=== PATIENT | male | born 1935 | race Caucasian/White ===

== ENCOUNTER 2017-08-21 11:30 | Inpatient (IN) | payer MEDICARE, OTHER ==
[~2017-08-21] VITALS: Ht 182.9 cm; Wt 82.1 kg
[~2017-08-21 11:30] MED LIST: CHOL2000 PO; DOXY100C2 PO; LATA2.5D3 EACHEYE; PILO15DR24 EACHEYE; SIMV20TA3 PO; TAMS0.4C2 PO; TEST2.5G TP; UBID100C24 PO; VITA400C43 PO
[2017-08-21] MEDS ORDERED: LATA2.5D2 EACHEYE (13:10)
[2017-08-21 13:49] LABS: HEMATOCRIT 44.8 % (39.2-51.8); HEMOGLOBIN 15.4 g/dL (13.7-18.0); WHITE BLOOD COUNT 4.4 x10^3/uL (3.4-10)
[2017-08-21 14:03] LABS: BLOOD UREA NITROGEN 19 mg/dL (7-18)
[2017-08-21 14:07] LABS: ASPARTATE AMINO TRANSFERASE 18 U/L (15-37)
[2017-08-22] MEDS ORDERED: PLEASE ENTER ALLERGIES MC SCH ×2 (04:30)
[2017-08-22 05:18] VITALS: BP_SYST 154; BP_SYST 158; BP_DIAS 68; BP_DIAS 78
[2017-08-22] MEDS ORDERED: INSULIN ASPART 100 UNITS/ML, PEN SQ-INSULIN SCH (06:00)
[2017-08-22] MEDS ORDERED: DO NOT GIVE MC SCH (06:00)
[2017-08-22] MEDS ORDERED: CHLORHEXIDINE MOUTHWASH 15 ML UDC MM SCH (06:00)
[2017-08-22] MEDS: MUPIROCIN OINT 2%, 22GM TP SCH ×2 (06:10→21:00)
[2017-08-22] MEDS ORDERED: FENTANYL PF 1000 MCG/20ML ONE (06:23)
[2017-08-22] MEDS ORDERED: MIDAZOLAM 10MG/2 ML ONE (06:24)
[2017-08-22] MEDS ORDERED: EPINEPHRINE 1 MG/ML, 1ML ONE (06:26)
[2017-08-22] MEDS ORDERED: PHENYLEPHRINE 10 MG/ML ONE (06:26)
[2017-08-22] MEDS ORDERED: CALCIUM CHLORIDE 10%, 10ML SYR ONE (06:26)
[2017-08-22] MEDS ORDERED: TRANEXAMIC ACID 100 MG/ML, 10ML ONE ×2 (06:27→13:11)
[2017-08-22] MEDS ORDERED: PROPOFOL 10 MG/ML, 20ML ONE (06:35)
[2017-08-22] MEDS ORDERED: ROCURONIUM 10 MG/ML,10ML ONE (06:35)
[2017-08-22 06:46] VITALS: BP 134/68
[2017-08-22] MEDS ORDERED: REGULAR INSULIN 62.5 UNITS in SODIUM CHLORIDE 0.9% 249.375 ML IV PRN ×2 (07:30→09:30)
[2017-08-22] MEDS ORDERED: VANCOMYCIN 1,200 MG in SODIUM CHLORIDE 0.9% 250 ML IV PRN (07:30)
[2017-08-22] MEDS ORDERED: PHENYLEPHRINE 10 MG in SODIUM CHLORIDE 0.9% 249 ML IV PRN ×2 (07:30→09:30)
[2017-08-22] MEDS ORDERED: ALBUMIN HUMAN 5% 500 ML IV ONE (07:30)
[2017-08-22] MEDS ORDERED: CEFUROXIME 1.5 GM in SODIUM CHLORIDE 0.9% 50 ML IVPB PRN (07:30)
[2017-08-22] MEDS ORDERED: POTASSIUM CHLORIDE 80 MEQ, SODIUM BICARBONATE 8.4% 10 MEQ, MAGNESIUM SULFATE 0.5 GM, LI... IV PRN (07:30)
[2017-08-22] MEDS ORDERED: DEXMEDETOMIDINE 200 MCG in SODIUM CHLORIDE 0.9% 48 ML IV SCH (07:30)
[2017-08-22] MEDS ORDERED: EPINEPHRINE 2 MG in SODIUM CHLORIDE 0.9% 248 ML IV SCH (07:30)
[2017-08-22] MEDS ORDERED: MANNITOL PMX 20% 500 ML IVPB PRN (07:30)
[2017-08-22] MEDS ORDERED: PROTAMINE SULFATE 10 MG/ML, 25ML ONE ×2 (08:49)
[2017-08-22] MEDS: DOCUSATE 100 MG CAPSULE PO SCH ×2 (09:00→21:40)
[2017-08-22] MEDS: SODIUM CHLORIDE FLUSH 10ML SYR IVF SCH ×3 (09:00→21:43)
[2017-08-22] MEDS ORDERED: DEXTROSE 4 GM TAB.CHEW PO PRN (09:30)
[2017-08-22] MEDS ORDERED: NITROGLYCERIN/D5W PMX 240 ML IV PRN (09:30)
[2017-08-22] MEDS ORDERED: EPINEPHRINE 2 MG in SODIUM CHLORIDE 0.9% 248 ML IV PRN (09:30)
[2017-08-22] MEDS ORDERED: ACETAMINOPHEN 650 MG SUPP PR PRN (09:30)
[2017-08-22] MEDS: CHLORHEXIDINE MOUTHWASH 15 ML UDC MM SCH ×2 (09:30→21:44)
[2017-08-22] MEDS ORDERED: VASOPRESSIN 50 UNIT in SODIUM CHLORIDE 0.9% 250 ML IV PRN (09:30)
[2017-08-22] MEDS ORDERED: BISACODYL 5 MG EC TABLET PO PRN (09:30)
[2017-08-22] MEDS ORDERED: ONDANSETRON 2MG/ML, 2ML IVPush PRN (09:30)
[2017-08-22] MEDS ORDERED: DEXTROSE 50%, 50ML SYRINGE IVPush PRN (09:30)
[2017-08-22] MEDS ORDERED: SODIUM CHLORIDE 0.9% 1,000 ML IV PRN (09:30)
[2017-08-22] MEDS ORDERED: BISACODYL 10 MG SUPP PR PRN (09:30)
[2017-08-22] MEDS ORDERED: ACETAMINOPHEN 325 MG TABLET PO PRN (09:30)
[2017-08-22] MEDS ORDERED: morphine SULFATE 10 MG/ML, 1ML IVPush PRN (09:30)
[2017-08-22] MEDS ORDERED: HYDROcodone/APAP 5/325 TABLET PO PRN (09:30)
[2017-08-22] MEDS ORDERED: MIDAZOLAM 1 MG/ML, 5ML IVPush PRN (09:30)
[2017-08-22] MEDS ORDERED: SODIUM BICARB 8.4%, 50ML SYRINGE IV PRN (09:30)
[2017-08-22] MEDS ORDERED: INSULIN REGULAR 100 UNITS/ML, 3ML VIAL IVPush PRN (09:30)
[2017-08-22] MEDS ORDERED: VANCOMYCIN 1,000 MG in SODIUM CHLORIDE 0.9% 250 ML IVPB SCH (09:30)
[2017-08-22] MEDS ORDERED: PROCHLORPERAZINE 5 MG/ML, 2ML IVPush PRN (09:30)
[2017-08-22] MEDS: KSCALE TO 4.5 IV SCH ×3 (09:30→21:30)
[2017-08-22] MEDS ORDERED: GLUCAGON 1 MG IM PRN (09:30)
[2017-08-22] MEDS ORDERED: DOBUTAMINE 250 MG in SODIUM CHLORIDE 0.9% 230 ML IV PRN (09:30)
[2017-08-22] MEDS ORDERED: DEXMEDETOMIDINE 200 MCG in SODIUM CHLORIDE 0.9% 48 ML IV PRN (09:30)
[2017-08-22 10:01] LABS: ABG COLLECTION SITE ARTERIAL LINE; FIO2 50 %
[2017-08-22] MEDS: LACTATED RINGERS 1,000 ML IV PRN ×3 (10:26→13:03)
[2017-08-22] MEDS: MAGNESIUM SULFATE 1 GM in SODIUM CHLORIDE 0.9% 50 ML IVPB SCH (10:44)
[2017-08-22] MEDS ORDERED: POTASSIUM CHLORIDE PMX 100 ML IV ONE (11:00)
[2017-08-22] MEDS: INSULIN ASPART 100 UNITS/ML, PEN SQ-INSULIN SCH ×3 (11:00→21:27)
[2017-08-22] MEDS ORDERED: SODIUM BICARB 8.4%, 50ML SYRINGE ONE (13:10)
[2017-08-22] MEDS ORDERED: methylPREDNISolone SOD SUCC 125 MG/2 ML ONE (13:10)
[2017-08-22] MEDS ORDERED: LIDOCAINE 2% 100MG/5ML SYRINGE ONE (13:10)
[2017-08-22] MEDS ORDERED: ALBUMIN HUMAN 25% 50 ML ONE (13:11)
[2017-08-22] MEDS ORDERED: HEPARIN 1,000 UNITS/ML, 30ML ONE (13:11)
[2017-08-22] MEDS ORDERED: FENTANYL PF 100 MCG/2ML ONE (14:27)
[2017-08-22] MEDS ORDERED: FENTANYL PF 100 MCG/2ML IVPush PRN (14:30)
[2017-08-22 16:40] LABS: HEMATOCRIT 34.3 % (39.2-51.8); HEMOGLOBIN 11.9 g/dL (13.7-18.0)
[2017-08-22] MEDS: CEFUROXIME 1.5 GM in SODIUM CHLORIDE 0.9% 50 ML IVPB SCH (18:30)
[2017-08-22] MEDS: VANCOMYCIN PMX 1GM/200ML 200 ML IV SCH (20:09)
[2017-08-22] MEDS ORDERED: LATANOPROST OPHTH 0.005%, 2.5ML EACHEYE SCH (21:00)
[2017-08-22 21:15] LABS: HEMATOCRIT 36.4 % (39.2-51.8); HEMOGLOBIN 12.3 g/dL (13.7-18.0)
[2017-08-22] MEDS: MUPIROCIN OINT 2%, 22GM NAS SCH (21:42)
[2017-08-22] MEDS ORDERED: OXYcodone IR 5MG TABLET ONE ×2 (21:47→23:50)
[2017-08-22] MEDS: OXYcodone IR 30 MG TABLET PO PRN ×2 (21:49→23:53)
[2017-08-23] MEDS: INSULIN ASPART 100 UNITS/ML, PEN SQ-INSULIN SCH ×6 (01:15→23:28)
[2017-08-23] MEDS ORDERED: OXYcodone IR 5MG TABLET ONE ×2 (02:27→06:05)
[2017-08-23] MEDS: OXYcodone IR 30 MG TABLET PO PRN ×2 (02:28→06:07)
[2017-08-23] MEDS: KSCALE TO 4.5 IV SCH (03:30)
[2017-08-23 05:57] LABS: ABG COLLECTION SITE NOT DOCUMENTED
[2017-08-23 06:06] LABS: BLOOD UREA NITROGEN 24 mg/dL (7-18)
[2017-08-23 06:09] LABS: HEMOGLOBIN 11.6 g/dL (13.7-18.0); WHITE BLOOD COUNT 8.5 x10^3/uL (3.4-10)
[2017-08-23] MEDS: CEFUROXIME 1.5 GM in SODIUM CHLORIDE 0.9% 50 ML IVPB SCH (06:09)
[2017-08-23 06:30] LABS: DIFF TOTAL CELLS COUNTED 100 CELL DIFF
[2017-08-23] MEDS ORDERED: POTASSIUM CHLORIDE PMX 100 ML IV ONE (06:30)
[2017-08-23 06:34] LABS: VERIFY COUNTS? YES
[2017-08-23] MEDS: VANCOMYCIN PMX 1GM/200ML 200 ML IV SCH (06:57)
[2017-08-23] MEDS: MUPIROCIN OINT 2%, 22GM NAS SCH ×2 (08:39→21:00)
[2017-08-23] MEDS: SODIUM CHLORIDE FLUSH 10ML SYR IVF SCH ×5 (08:41→21:14)
[2017-08-23] MEDS: CLOPIDOGREL 75 MG TABLET PO SCH (08:41)
[2017-08-23] MEDS: CHLORHEXIDINE MOUTHWASH 15 ML UDC MM SCH ×2 (08:42→21:10)
[2017-08-23] MEDS: ASPIRIN 81 MG TABLET EC PO SCH (08:42)
[2017-08-23] MEDS: DOCUSATE 100 MG CAPSULE PO SCH ×2 (08:42→21:10)
[2017-08-23] MEDS: LATANOPROST OPHTH 0.005%, 2.5ML EACHEYE SCH ×2 (08:43→21:00)
[2017-08-23] MEDS ORDERED: WARFARIN BIOPROSTHETIC VALVE PROTOCOL 2-3 XX SCH (09:00)
[2017-08-23 09:24] LABS: HEMATOCRIT 34.9 % (39.2-51.8); HEMOGLOBIN 11.8 g/dL (13.7-18.0)
[2017-08-23] MEDS ORDERED: TAMSULOSIN 0.4 MG CAP.ER.24H PO SCH ×2 (09:45→21:00)
[2017-08-23] MEDS: MAGNESIUM SULFATE 1 GM in SODIUM CHLORIDE 0.9% 50 ML IVPB SCH (10:07)
[2017-08-23] MEDS: POTASSIUM CHLORIDE 10 MEQ TABLET.ER PO SCH ×2 (12:13→17:29)
[2017-08-23] MEDS: FUROSEMIDE 20 MG/2 ML IV SCH ×2 (12:13→17:29)
[2017-08-23] MEDS: MAGNESIUM HYDROXIDE 8%, 30ML UDC PO PRN (12:13)
[2017-08-23 20:28] VITALS: BP 123/82
[2017-08-23] MEDS: HYDROcodone/APAP 10/325 MG TABLET PO PRN (21:10)
[2017-08-23] MEDS ORDERED: AMIODARONE 150 MG in DEXTROSE 5% 100 ML IV ONE (23:00)
[2017-08-23] MEDS ORDERED: FILTER 0.22 MICRON IV PRN (23:00)
[2017-08-23] MEDS: AMIODARONE 900 MG in DEXTROSE 5% 482 ML IV PRN (23:29)
[2017-08-24] VITALS (9 sets, daily range): BP systolic 96–130; BP diastolic 45–74
[2017-08-24] MEDS: HYDROcodone/APAP 10/325 MG TABLET PO PRN ×4 (01:26→20:54)
[2017-08-24] MEDS: INSULIN ASPART 100 UNITS/ML, PEN SQ-INSULIN SCH ×4 (03:39→21:19)
[2017-08-24 05:33] LABS: WHITE BLOOD COUNT 6.9 x10^3/uL (3.4-10)
[2017-08-24 05:42] LABS: BLOOD UREA NITROGEN 32 mg/dL (7-18)
[2017-08-24] MEDS: POTASSIUM CHLORIDE 10 MEQ TABLET.ER PO SCH ×2 (08:00→17:57)
[2017-08-24] MEDS: MUPIROCIN OINT 2%, 22GM NAS SCH ×2 (09:00→20:53)
[2017-08-24] MEDS: CLOPIDOGREL 75 MG TABLET PO SCH (09:00)
[2017-08-24] MEDS: ASPIRIN 81 MG TABLET EC PO SCH (09:00)
[2017-08-24] MEDS: LATANOPROST OPHTH 0.005%, 2.5ML EACHEYE SCH ×2 (09:00→20:52)
[2017-08-24] MEDS: SODIUM CHLORIDE FLUSH 10ML SYR IVF SCH ×6 (09:00→20:53)
[2017-08-24] MEDS: FUROSEMIDE 20 MG/2 ML IV SCH ×2 (09:12→17:57)
[2017-08-24] MEDS: DOCUSATE 100 MG CAPSULE PO SCH ×2 (09:12→20:54)
[2017-08-24] MEDS: TAMSULOSIN 0.4 MG CAP.ER.24H PO SCH ×2 (10:15→20:54)
[2017-08-24] MEDS: MAGNESIUM SULFATE 1 GM in SODIUM CHLORIDE 0.9% 50 ML IVPB SCH (10:38)
[2017-08-24 13:47] LABS: HEMATOCRIT 34.1 % (39.2-51.8); HEMOGLOBIN 11.9 g/dL (13.7-18.0); WHITE BLOOD COUNT 8.4 x10^3/uL (3.4-10)
[2017-08-24] MEDS: MAGNESIUM HYDROXIDE 8%, 30ML UDC PO PRN (13:52)
[2017-08-24] MEDS: AMIODARONE 900 MG in DEXTROSE 5% 482 ML IV PRN (22:39)
[2017-08-25 02:48] VITALS: BP 112/66
[2017-08-25 05:08] LABS: BLOOD UREA NITROGEN 36 mg/dL (7-18)
[2017-08-25] MEDS: INSULIN ASPART 100 UNITS/ML, PEN SQ-INSULIN SCH ×4 (07:00→21:00)
[2017-08-25 07:55] VITALS: BP 109/61
[2017-08-25] MEDS: MAGNESIUM HYDROXIDE 8%, 30ML UDC PO PRN (08:33)
[2017-08-25] MEDS: ASPIRIN 81 MG TABLET EC PO SCH (08:34)
[2017-08-25] MEDS: TAMSULOSIN 0.4 MG CAP.ER.24H PO SCH ×2 (08:34→20:59)
[2017-08-25] MEDS: POTASSIUM CHLORIDE 10 MEQ TABLET.ER PO SCH ×2 (08:34→18:05)
[2017-08-25] MEDS: FUROSEMIDE 20 MG/2 ML IV SCH ×2 (08:34→18:05)
[2017-08-25] MEDS: DOCUSATE 100 MG CAPSULE PO SCH ×2 (08:35→20:59)
[2017-08-25] MEDS: LATANOPROST OPHTH 0.005%, 2.5ML EACHEYE SCH ×2 (08:35→20:59)
[2017-08-25] MEDS: SODIUM CHLORIDE FLUSH 10ML SYR IVF SCH ×6 (08:35→21:00)
[2017-08-25] MEDS: CLOPIDOGREL 75 MG TABLET PO SCH (08:35)
[2017-08-25] MEDS: HYDROcodone/APAP 10/325 MG TABLET PO PRN ×2 (08:35→21:01)
[2017-08-25] MEDS: MUPIROCIN OINT 2%, 22GM NAS SCH ×2 (08:36→20:59)
[2017-08-25 12:51] VITALS: BP 107/57
[2017-08-25 20:59] VITALS: BP 107/69
[2017-08-25] MEDS: AMIODARONE 200 MG TABLET PO SCH (20:59)
[2017-08-26 02:59] VITALS: BP 107/57
[2017-08-26 06:01] LABS: BLOOD UREA NITROGEN 36 mg/dL (7-18)
[2017-08-26] MEDS: INSULIN ASPART 100 UNITS/ML, PEN SQ-INSULIN SCH (07:00)
[2017-08-26 08:35] VITALS: BP 129/65
[2017-08-26] MEDS: AMIODARONE 200 MG TABLET PO SCH ×2 (08:40→19:50)
[2017-08-26] MEDS: DOCUSATE 100 MG CAPSULE PO SCH ×2 (08:40→19:50)
[2017-08-26] MEDS: POTASSIUM CHLORIDE 10 MEQ TABLET.ER PO SCH ×2 (08:40→16:44)
[2017-08-26] MEDS: TAMSULOSIN 0.4 MG CAP.ER.24H PO SCH ×2 (08:40→19:49)
[2017-08-26] MEDS: FUROSEMIDE 20 MG/2 ML IV SCH ×2 (08:41→16:44)
[2017-08-26] MEDS: ASPIRIN 81 MG TABLET EC PO SCH (08:41)
[2017-08-26] MEDS: MAGNESIUM HYDROXIDE 8%, 30ML UDC PO PRN (08:41)
[2017-08-26] MEDS: CLOPIDOGREL 75 MG TABLET PO SCH (08:41)
[2017-08-26] MEDS: SODIUM CHLORIDE FLUSH 10ML SYR IVF SCH ×6 (08:42→19:50)
[2017-08-26] MEDS: MUPIROCIN OINT 2%, 22GM NAS SCH ×2 (08:42→19:51)
[2017-08-26 12:45] VITALS: BP 106/50
[2017-08-26] MEDS: HYDROcodone/APAP 10/325 MG TABLET PO PRN (19:50)
[2017-08-26 20:40] VITALS: BP 138/66
[2017-08-26] MEDS ORDERED: LATANOPROST OPHTH 0.005%, 2.5ML EACHEYE SCH (21:00)
[2017-08-27 02:44] VITALS: BP 101/57
[2017-08-27 05:53] LABS: HEMATOCRIT 27.8 % (39.2-51.8); HEMOGLOBIN 9.8 g/dL (13.7-18.0); WHITE BLOOD COUNT 4.2 x10^3/uL (3.4-10)
[2017-08-27 06:05] LABS: BLOOD UREA NITROGEN 31 mg/dL (7-18)
[2017-08-27 07:49] VITALS: BP 109/62
[2017-08-27] MEDS: TAMSULOSIN 0.4 MG CAP.ER.24H PO SCH (08:46)
[2017-08-27] MEDS: AMIODARONE 200 MG TABLET PO SCH (08:46)
[2017-08-27] MEDS: POTASSIUM CHLORIDE 10 MEQ TABLET.ER PO SCH (08:46)
[2017-08-27] MEDS: ASPIRIN 81 MG TABLET EC PO SCH (08:46)
[2017-08-27] MEDS: FUROSEMIDE 20 MG/2 ML IV SCH (08:46)
[2017-08-27] MEDS: CLOPIDOGREL 75 MG TABLET PO SCH (08:46)
[2017-08-27] MEDS: SODIUM CHLORIDE FLUSH 10ML SYR IVF SCH ×3 (08:47→08:48)
[2017-08-27] MEDS: MUPIROCIN OINT 2%, 22GM NAS SCH (08:47)
[2017-08-27] MEDS: DOCUSATE 100 MG CAPSULE PO SCH (08:48)
[2017-08-27] MEDS ORDERED: AMIO200T42 PO (10:11)
[2017-08-27] MEDS ORDERED: POTA10TA5 PO (10:11)
[2017-08-27] MEDS ORDERED: ASPI-621 PO (10:11)
[2017-08-27] MEDS ORDERED: FURO10VI37 PO (10:11)
[2017-08-27] MEDS ORDERED: CLOP75TA PO (10:11)
== END 2017-08-27 12:30 | disposition home health service (06) | DRG 219 ==
LOC: 5SO 08-22 04:17 → EDSTATUS 08-22 07:30 → CSU 08-22 08:34 → 5SO 08-23 17:04 → DCLOUNGE 08-27 12:15
PROVIDERS: ADMIT Thoracic Surgery (Cardiothoracic Vascular Surgery); ATTEND Thoracic Surgery (Cardiothoracic Vascular Surgery)
PROC: 5A1221Z Performance of Cardiac Output, Continuous (ICD-10-PCS; 2017-08-22)
PROC: B246ZZ4 Ultrasonography of Right and Left Heart, Transesophageal (ICD-10-PCS; 2017-08-22)
PROC: 5A1213Z Performance of Cardiac Pacing, Intermittent (ICD-10-PCS; 2017-08-22)
PROC: 02RF0JZ Replacement of Aortic Valve with Synthetic Substitute, Open Approach (ICD-10-PCS; principal; 2017-08-22 07:30)
PROC: 30233R1 Transfusion of Nonautologous Platelets into Peripheral Vein, Percutaneous Approach (ICD-10-PCS; 2017-08-24)
DX: I08.0 Rheumatic disorders of both mitral and aortic valves (principal); I50.31 Acute diastolic (congestive) heart failure; I48.91 Unspecified atrial fibrillation; I11.0 Hypertensive heart disease with heart failure; I70.0 Atherosclerosis of aorta; E78.5 Hyperlipidemia, unspecified; I25.10 Atherosclerotic heart disease of native coronary artery without angina pectoris; Z96.652 Presence of left artificial knee joint; Z87.891 Personal history of nicotine dependence
CPT/HCPCS: 36415; 36600; 71010; 71020; 80048; 80053; 81003; 82040; 82330; 82800; 82803; 82810; 82947; 82962; 83036; 83735; 84132; 84295; 85014; 85018; 85025; 85049; 85347; 85610; 85730; 86850; 86900; 86923; 87081; 88305; 88311; 93005; 93312; 93321; 93325; 93880; 94002; 94003; 94150; C1768; J0171; J0697; J1644; J1815; J2250; J2704; J2720; J3010; J3370; J3475; J3480; J3490; P9045; P9047; C1751; C1760; C1762; J0282; J1940; J2270; J2370; J2930; J7050; J7060; J7120; P9035

== ENCOUNTER 2017-08-27 16:35 | Inpatient (IN) | payer MEDICARE, OTHER ==
[~2017-08-27] VITALS: Ht 182.9 cm; Wt 77.4 kg
[~2017-08-27 16:35] MED LIST changes: +AMIO200T42 PO; +ASPI-621 PO; +CLOP75TA PO; +FURO10VI37 PO; +LATA2.5D2 EACHEYE; +POTA10TA5 PO
[2017-08-27 17:50] LABS: HEMATOCRIT 30.9 % (39.2-51.8); HEMOGLOBIN 10.7 g/dL (13.7-18.0); WHITE BLOOD COUNT 5.3 x10^3/uL (3.4-10)
[2017-08-27 17:58] LABS: BLOOD UREA NITROGEN 31 mg/dL (7-18)
[2017-08-27] MEDS ORDERED: FUROSEMIDE 40 MG TABLET PO ONE (18:00)
[2017-08-27] MEDS ORDERED: SODIUM CHLORIDE FLUSH 10ML SYR IVF ONE (18:00)
[2017-08-27] MEDS ORDERED: FUROSEMIDE 40 MG/4 ML IV ONE (18:00)
[2017-08-27] MEDS ORDERED: MORPHINE SULFATE 4 MG/ML, 1ML IVPush PRN (18:00)
[2017-08-27] MEDS ORDERED: ONDANSETRON 2MG/ML, 2ML ONE (18:35)
[2017-08-27] MEDS ORDERED: morphine SULFATE 10 MG/ML, 1ML ONE (18:35)
[2017-08-27] MEDS ORDERED: TEMAZEPAM 15 MG CAPSULE PO PRN (19:00)
[2017-08-27] MEDS ORDERED: ENALAPRILAT 1.25 MG/ML, 2ML IVPush PRN (19:00)
[2017-08-27] MEDS ORDERED: ONDANSETRON ODT 4 MG PO PRN (19:00)
[2017-08-27] MEDS ORDERED: ACETAMINOPHEN 325 MG TABLET PO PRN (19:00)
[2017-08-27] MEDS ORDERED: DOCUSATE 100 MG CAPSULE PO PRN (19:00)
[2017-08-27 20:40] VITALS: BP 126/56
[2017-08-27] MEDS: SIMVASTATIN 20 MG TABLET PO SCH ×2 (21:00→22:13)
[2017-08-27] MEDS ORDERED: PILOCARPINE OPHTH 2%, 15ML EACHEYE SCH (21:00)
[2017-08-27] MEDS: LATANOPROST OPHTH 0.005%, 2.5ML EACHEYE SCH (22:12)
[2017-08-27] MEDS: AMIODARONE 200 MG TABLET PO SCH (22:12)
[2017-08-27] MEDS: POTASSIUM CHLORIDE 10 MEQ TABLET.ER PO SCH ×2 (22:13→23:18)
[2017-08-27] MEDS: HEPARIN 5,000 UNITS/ML, 1ML SQ SCH (22:13)
[2017-08-28 00:53] VITALS: BP 129/66
[2017-08-28 05:38] LABS: BLOOD UREA NITROGEN 28 mg/dL (7-18)
[2017-08-28] MEDS: HEPARIN 5,000 UNITS/ML, 1ML SQ SCH ×3 (05:41→22:18)
[2017-08-28 06:57] VITALS: BP 97/60
[2017-08-28] MEDS ORDERED: FUROSEMIDE 40 MG/4 ML IV SCH (09:00)
[2017-08-28] MEDS: ASPIRIN 81 MG TABLET EC PO SCH (10:39)
[2017-08-28] MEDS: POTASSIUM CHLORIDE 10 MEQ TABLET.ER PO SCH ×2 (10:39→18:36)
[2017-08-28] MEDS: CLOPIDOGREL 75 MG TABLET PO SCH (10:39)
[2017-08-28] MEDS: TAMSULOSIN 0.4 MG CAP.ER.24H PO SCH (10:39)
[2017-08-28] MEDS: AMIODARONE 200 MG TABLET PO SCH ×2 (10:39→19:33)
[2017-08-28 13:12] VITALS: BP 106/54
[2017-08-28 19:30] VITALS: BP 90/51
[2017-08-28] MEDS: LATANOPROST OPHTH 0.005%, 2.5ML EACHEYE SCH (19:33)
[2017-08-28] MEDS: SIMVASTATIN 20 MG TABLET PO SCH (19:33)
[2017-08-28] MEDS ORDERED: PILOCARPINE 1% EACHEYE SCH (21:00)
[2017-08-29 00:16] VITALS: BP 117/47
[2017-08-29 05:06] LABS: HEMATOCRIT 28.6 % (39.2-51.8); HEMOGLOBIN 9.9 g/dL (13.7-18.0); WHITE BLOOD COUNT 5.2 x10^3/uL (3.4-10)
[2017-08-29 05:18] LABS: BLOOD UREA NITROGEN 34 mg/dL (7-18)
[2017-08-29] MEDS: HEPARIN 5,000 UNITS/ML, 1ML SQ SCH (06:13)
[2017-08-29 07:53] VITALS: BP 122/83
[2017-08-29] MEDS: CLOPIDOGREL 75 MG TABLET PO SCH (09:47)
[2017-08-29] MEDS: TAMSULOSIN 0.4 MG CAP.ER.24H PO SCH (09:47)
[2017-08-29] MEDS: POTASSIUM CHLORIDE 10 MEQ TABLET.ER PO SCH ×2 (09:48→17:53)
[2017-08-29] MEDS: ASPIRIN 81 MG TABLET EC PO SCH (09:48)
[2017-08-29] MEDS: FUROSEMIDE 20 MG TABLET PO SCH ×2 (09:48→17:53)
[2017-08-29] MEDS: AMIODARONE 200 MG TABLET PO SCH (09:49)
[2017-08-29 13:21] VITALS: BP 94/42
[2017-08-29] MEDS ORDERED: ACETAMINOPHEN 325 MG TABLET PO PRN (19:00)
[2017-08-29] MEDS ORDERED: TEMAZEPAM 15 MG CAPSULE PO PRN (19:00)
[2017-08-29] MEDS ORDERED: ENALAPRILAT 1.25 MG/ML, 2ML IVPush PRN (19:00)
[2017-08-29] MEDS ORDERED: ONDANSETRON ODT 4 MG PO PRN (19:00)
[2017-08-29] MEDS ORDERED: DOCUSATE 100 MG CAPSULE PO PRN (19:00)
== END 2017-08-29 18:40 | DRG 314 ==
LOC: ED 18:21 → EDIP 18:43 → 5SO 20:25
PROVIDERS: ADMIT Family Medicine; ATTEND Family Medicine
DX: I97.130 Postprocedural heart failure following cardiac surgery (principal); I50.33 Acute on chronic diastolic (congestive) heart failure; D69.6 Thrombocytopenia, unspecified; I35.0 Nonrheumatic aortic (valve) stenosis; E44.1 Mild protein-calorie malnutrition; E78.5 Hyperlipidemia, unspecified; H40.9 Unspecified glaucoma; M16.11 Unilateral primary osteoarthritis, right hip; Z95.2 Presence of prosthetic heart valve; Z87.891 Personal history of nicotine dependence
CPT/HCPCS: 36415; 71010; 80048; 82040; 83880; 85025; 93005; 99285; J1644; J1940

== ENCOUNTER → 2017-12-15 | Outpatient (CLI) | payer MEDICARE, OTHER ==
[~2017-12-15] MED LIST changes: +ASPI-496 PO; +CALC-126 PO; +CALC1TAB4 PO; +CHOL200074 PO; +CLOP75TA52 PO; +CYAN1TAB29 PO; +FURO20TA3 PO; +LACT20SO13 PO; +POTA10TA6 PO; +PSYL1PAC9 PO; +UBID100C41 PO; +magnesium PO
== END | disposition home or self-care (01) ==
LOC: STAR 10:05
PROVIDERS: ATTEND Surgery
DX: Z01.818 Encounter for other preprocedural examination (principal); R94.31 Abnormal electrocardiogram [ECG] [EKG]
CPT/HCPCS: 93005

== ENCOUNTER 2018-01-01 08:14 | Day surgery (SDC) | payer MEDICARE, OTHER ==
[~2018-01-01] VITALS: Ht 182.9 cm; Wt 76.2 kg
[~2018-01-01 08:14] MED LIST changes: +SUGAMMADEX 200 MG/2 ML IVPush ONE
[2018-01-01 09:19] VITALS: BP 124/66
[2018-01-01] MEDS ORDERED: LACTATED RINGERS 1,000 ML IV SCH (09:43)
[2018-01-01 09:57] LABS: ALANINE AMINOTRANSFERASE 25 U/L (12-78); ALBUMIN 3.6 g/dL (3.4-5.0); ANION GAP 6 mmol/L (5-15); CALCIUM 8.7 mg/dL (8.5-10.1); CHLORIDE 112 mmol/L (98-107); CREATININE 0.89 mg/dL (0.7-1.3)
[2018-01-01 09:59] LABS: ALKALINE PHOSPHATASE 79 U/L (45-117); BILIRUBIN,TOTAL 0.5 mg/dL (0.2-1.0); TOTAL PROTEIN 6.8 g/dL (6.4-8.2)
[2018-01-01] MEDS ORDERED: FENTANYL PF 100 MCG/2ML ONE ×2 (10:38→12:39)
[2018-01-01] MEDS ORDERED: ONDANSETRON 2MG/ML, 2ML ONE (10:38)
[2018-01-01] MEDS ORDERED: CEFAZOLIN 1,000 MG ONE (10:38)
[2018-01-01] MEDS ORDERED: GLYCOPYRROLATE 0.2MG/1ML, 5ML ONE (10:38)
[2018-01-01] MEDS ORDERED: SUCCINYLCHOLINE 20 MG/ML, 10ML ONE (10:38)
[2018-01-01] MEDS ORDERED: NEOSTIGMINE 1 MG/ML, 10ML ONE (10:38)
[2018-01-01] MEDS ORDERED: DEXAMETHASONE 4 MG/ML, 1ML ONE (10:38)
[2018-01-01] MEDS ORDERED: PROPOFOL 10 MG/ML, 20ML ONE ×2 (10:38→11:37)
[2018-01-01] MEDS ORDERED: EPINEPHRINE 1 MG/ML, 1ML ONE (10:39)
[2018-01-01] MEDS ORDERED: BUPIVACAINE/PF 0.5% ONE (10:39)
[2018-01-01] MEDS ORDERED: EPHEDRINE 50 MG/ML, 1ML ONE (10:53)
[2018-01-01] MEDS ORDERED: ROCURONIUM 10 MG/ML,10ML ONE (10:53)
[2018-01-01] MEDS ORDERED: PHENYLEPHRINE 10 MG/ML ONE (10:53)
[2018-01-01] MEDS ORDERED: HYDROcodone/APAP 7.5-325MG/15ML UDC PO PRN (11:00)
[2018-01-01] MEDS ORDERED: HYDROmorphone 1 MG/ML, 1ML IV PRN (11:00)
[2018-01-01] MEDS ORDERED: ACETAMINOPHEN 325 MG TABLET PO PRN (11:00)
[2018-01-01] MEDS ORDERED: MEPERIDINE/PF 25MG/0.5ML IVPush PRN (11:00)
[2018-01-01] MEDS ORDERED: FENTANYL PF 100 MCG/2ML IV PRN (11:00)
[2018-01-01] MEDS ORDERED: morphine SULFATE 10 MG/ML, 1ML IV PRN (11:00)
[2018-01-01] MEDS ORDERED: OXYcodone 5 MG/5 ML ORAL.SOL UDC PO PRN (11:00)
[2018-01-01] MEDS ORDERED: KETOROLAC 30 MG/1 ML IV PRN ×2 (11:00)
[2018-01-01] MEDS ORDERED: OXYcodone 5 MG/5 ML ORAL.SOL UDC ONE (12:26)
[2018-01-01] MEDS ORDERED: ACETAMINOPHEN 650 MG/20.3 ML UDC ONE (12:26)
[2018-01-01] MEDS ORDERED: OXYcodone IR 5MG TABLET ONE (15:25)
== END 2018-01-01 15:35 ==
LOC: OUT 08:14
PROVIDERS: ATTEND Surgery
DX: K40.30 Unilateral inguinal hernia, with obstruction, without gangrene, not specified as recurrent (principal); Z98.890 Other specified postprocedural states; Z98.42 Cataract extraction status, left eye; Z98.41 Cataract extraction status, right eye; Z87.891 Personal history of nicotine dependence
CPT/HCPCS: 36415; 49650; 80053; C1781; J0171; J0690; J2370; J2704; J3010; J3490; J7120; S2900; J1100; J2405; J2710; J0330